=== PATIENT | female | born 1980 | race Caucasian/White ===

== ENCOUNTER → 2023-08-28 | Day surgery (SDC) | payer OTHER | END | disposition home or self-care (01) | LOC: FRADUS-SUR 08:52 | PROVIDERS: ATTEND Registered Nurse | PROC: 0HBU3ZX Excision of Left Breast, Percutaneous Approach, Diagnostic (ICD-10-PCS; principal; 2023-08-28) | DX: N60.22 Fibroadenosis of left breast (principal); N63.20 Unspecified lump in the left breast, unspecified quadrant | CPT/HCPCS: 19085; 77065-TC; 88305-TC; 88341-TC; 88342-TC; A4648 ==